=== PATIENT | male | born 1995 | race Caucasian/White ===

== ENCOUNTER 2019-07-20 19:22 | Emergency (ER) | payer SELFPAY ==
[~2019-07-20] VITALS: Ht 172.7 cm; Wt 82.0 kg
[2019-07-20] MEDS ORDERED: OLANZAPINE 10 MG/VIAL IM STA (21:37)
[2019-07-20] MEDS ORDERED: LORAZEPAM 2MG/ML CPJ IM STA (21:37)
[2019-07-20] MEDS ORDERED: ONDANSETRON HCL 4MG/2ML INJ IV STA (21:37)
[2019-07-20] MEDS ORDERED: SODIUM CHLORIDE 0.9% 1,000 ML IV ONE (21:37)
[2019-07-20] MEDS ORDERED: LORAZEPAM 2MG/ML CPJ IV ONE (21:45)
[2019-07-20 22:16] LABS: HEMATOCRIT. 46.2 % (42.0-52.0); HEMOGLOBIN. 15.2 g/dL (14.0-18.0); MEAN CORPUSCULAR HEMOGLOBIN 29.1 pg (28.0-32.0); MEAN CORPUSCULAR VOLUME 88.6 fL (80.0-94.0); MEAN PLATELET VOLUME 8.1 fl (7.4-10.4); PLATELET 302 x1000/uL (130-400); RED BLOOD CELL COUNT 5.21 mill/uL (4.7-6.1); RED CELL DISTRIBUTION WIDTH 13.6 % (11.6-14.6)
[2019-07-20 22:21] LABS: CHLORIDE 106 mEq/L (98-107)
[2019-07-20 22:24] LABS: ETHANOL BLOOD < 10 mg/dL
[2019-07-20 22:28] LABS: CREATINE KINASE 480 IU/L (39-308)
[2019-07-20 22:29] LABS: PLATELET ESTIMATE NORMAL
[2019-07-21 05:30] VITALS: BP 112/75
== END 2019-07-21 05:47 | disposition home or self-care (01) ==
LOC: ER 19:22
DX: T43.621A Poisoning by amphetamines, accidental (unintentional), initial encounter (principal); G92 Toxic encephalopathy; F15.188 Other stimulant abuse with other stimulant-induced disorder; Y92.098 Other place in other non-institutional residence as the place of occurrence of the external cause; R03.0 Elevated blood-pressure reading, without diagnosis of hypertension
CPT/HCPCS: 36415; 80053; 80307; 80320; 80329; 82140; 82550; 82553; 84443; 85025; 93005; 96374; 96375; 99284; J2060; J2405; J3490; J7030; Z7610; G0480